=== PATIENT | male | born 1965 | race Caucasian/White ===

== ENCOUNTER 2018-07-28 07:43 | Observation (INO) ==
[2018-07-28] MEDS ORDERED: Bisacodyl 10 MG Supp RECTAL PRN (14:55)
[2018-07-28] MEDS ORDERED: Acetaminophen 325 MG Tablet PO PRN (14:55)
[2018-07-28] MEDS ORDERED: Warfarin Consult Pharmacy OTHER PRN (14:59)
--- NOTE | 2018-07-28 15:05 | P.HP ---
History of Present Illness Primary Care Physician: UNKNOWN Chief Complaint: Intractable dizziness with nausea vomiting History of Present Illness: 52-year-old male with known history of antiphospholipid syndrome, Isela fundoplication for hiatal hernia who presented to the hospital for evaluation of intractable dizziness with nausea, vomiting and disequilibrium. Patient states that he was in normal state of health until this morning when he woke up suddenly out of bed at approximately 7 AM with severe dizziness. He described it as the room was spinning around and round. When he got up to go to the restroom he states that the room was spinning around as well as tilting to the left. He was having difficulty in ambulating to the restroom. Patient indicates that the dizziness continued and was persistent causing him to have an episode of nausea and vomiting. The patient gave it some time to see if it would resolve on its own however it did not so he came to the emergency department for evaluation. The patient came to the emergency department and was given Antivert, Bentyl, aspirin, Zofran with significant improvement of his symptoms. Presently he states that he does have some nausea with some mild spinning whenever he tries to stand up. However he is not experiencing the tilting of his ambulation at this time. The patient did have workup with CT, CTA of the head and neck without any acute abnormality. The patient denies any visual disturbances, difficulty eating or swallowing food, slurred speech, unilateral weakness, paresthesia or paralysis. It was recommended by her physician of the patient be observed in the hospital for further evaluation and management. - Diagnosis (1) Dizziness (2) Nausea & vomiting (3) Disequilibrium Review of Systems All other systems reviewed negative except as stated in HPI Neurologic: Reports abnormal walking, Reports dizziness PMFSH - History History Provided By: Patient - Medical History Medical History: Medical History (Last Reviewed 07/28/18 @ 15:04 by DURGA Laughlin) Anti-phospholipid syndrome Hypoglycemia - Surgical History Surgical History: Surgical History (Last Updated 07/28/18 @ 15:05 by DURGA Laughlin) History of Isela fundoplication Status post carotid surgery - Family History Family History: Family History (Last Updated 07/28/18 @ 15:08 by DURGA Laughlin) Father Family history of coronary artery disease - Tobacco History Second Hand Smoke Exposure: No Tobacco Use In Past 30 Days: No Smoking Status: Former smoker Tobacco Type: Cigarettes Number of Pack Years (if former smoker): 35 (Patient quit in 2015) - Alcohol History How Often Do You Have a Drink Containing Alcohol: Never - Substance Use History Substance History: No History of Abuse - Travel History Recent Travel in the [place] Within the Last 8 Weeks: No Recent Travel Out of the Country Within the Last 8 Weeks: No Medications and Allergies Active Medications: Active Medications Acetaminophen (Tylenol) 650 mg PO Q4H PRN PRN Reason: Temp > 100.4 Al Hydroxide/Mg Hydroxide (Milk Of Magnesia Liq) 30 ml PO Q12H PRN PRN Reason: Mild Constipation Bisacodyl (Dulcolax Supp) 10 mg RECTAL DAILY PRN PRN Reason: SEVERE CONSITIPATION Sodium Chloride (Ns Inj) 1,000 mls @ 100 mls/hr IV.CONT .Q10H DIONY Lactulose (Lactulose Liq) 30 ml PO DAILY PRN PRN Reason: SEVERE CONSITIPATION Meclizine HCl (Antivert) 25 mg PO Q8H DIONY Ondansetron HCl (Zofran Inj) 4 mg IV.PUSH Q6H PRN PRN Reason: NAUSEA OR VOMITING Pharmacy Profile Note (Coumadin Consult Pharmacy) 1 each OTHER UNSCH PRN PRN Reason: PHARMACY DOCUMENTATION Senna/Docusate Sodium (Neyda-Colace) 1 tab PO BID DIONY Sennosides (Senokot) 17.2 mg PO Q12H PRN PRN Reason: Moderate Constipation Sodium Chloride (Ns Flush) 2 ml IV.FLUSH BID DIONY Sodium Chloride (Ns Flush) 2 ml IV.FLUSH PRN PRN PRN Reason: FLUSH AFTER USING IV ACCESS Allergies Allergy/AdvReac Type Severity Reaction Status Date / Time Penicillins Allergy Hives Verified 07/28/18 08:00 Home Medications Medication Instructions Recorded Confirmed Type gabapentin 300 mg PO BID 07/28/18 07/28/18 History warfarin [Coumadin] 8 mg PO DAILY 07/28/18 07/28/18 History Exam Vital signs: Vital Signs 07/28/18 12:03 07/28/18 12:06 Temperature 97.7 F 97.5 F L Pulse Rate 112 H 53 L Respiratory Rate 20 20 Blood Pressure 170/95 H 135/82 Pulse Oximetry 93 L 99 Intake & Output 07/27/18 07/28/18 07/28/18 18:59 06:59 18:59 Weight 99.7 kg Other: Date of Last Bowel Movement 07/27/18 Weight On Admission 99.7 kg Narrative: GENERAL: Well-developed, well-nourished, in no acute distress. alert and orientated HEENT: Head is normocephalic without any lesions or masses noted. Facial features are symmetric. Eyes: Pupils equal round reactive to light. Extraocular muscles are intact. Conjunctivae were clear. Oropharyngeal: Pharynx without any erythema edema. Tongue is midline without deviation. Buccal mucosa is moist without any masses or lesions NECK: Supple without any masses. Trachea midline no deviation. No JVD, no bruits are appreciated CARDIAC: Regular rhythm, regular rate. S1/S2 are heard. No murmurs gallops or rubs. LUNGS: Clear to auscultation bilaterally. No wheeze, rhonchi or rales. No use of accessory muscles on inspiration or expiration. ABDOMEN: Soft, nontender. Nondistended. Bowel sounds heard in all 4 quadrants. No organomegaly or masses. Negative rebound, negative guarding EXTREMITIES: No edema, pulses are equal bilaterally. No cyanosis or clubbing NEUROLOGY: Mood and affect appear appropriate. Cranial nerves II through XII grossly intact. Muscle strength 5/5 in upper and lower extremities bilaterally. Deep tendon reflexes are 2+ in upper and lower extremities bilaterally. Caprini VTE Risk Assessment Caprini VTE Risk Assessment: No/Low Risk (score <= 1) Caprini Risk Assessment Model: Point Value = 1 Point Value = 2 Point Value = 3 Point Value = 5 Age 41-60 Minor surgery BMI > 25 kg/m2 Swollen legs Varicose veins or History of unexplained or recurrent spontaneous Oral contraceptives or hormone replacement Sepsis (< 1 month) Serious lung disease, including pneumonia (< 1 month) Abnormal pulmonary function Acute myocardial infarction Congestive heart failure (< 1 month) History of inflammatory bowel disease Medical patient at bed rest Age 61-74 Arthroscopic surgery Major open surgery (> 45 min) Laparoscopic surgery (> 45 min) Malignancy Confined to bed (> 72 hours) Immobilizing plaster cast Central venous access Age >= 75 History of VTE Family history of VTE Factor V Leiden Prothrombin [id number] Lupus anticoagulant Anticardiolipin antibodies Elevated serum homocysteine Heparin-induced thrombocytopenia Other congenital or acquired thrombophilia Stroke (< 1 month) Elective arthroplasty Hip, pelvis, or leg fracture Acute spinal cord injury (< 1 month) Prophylaxis Regimen: Total Risk Factor Score Risk Level Prophylaxis Regimen 0-1 Low Early ambulation 2 Moderate Order ONE of the following: *Sequential Compression Device (SCD) *Heparin 5000 units SQ BID 3-4 Higher Order ONE of the following medications: *Heparin 5000 units SQ TID *Enoxaparin/Lovenox 40 mg SQ daily (WT < 150 kg, CrCl > 30 mL/min) *Enoxaparin/Lovenox 30 mg SQ daily (WT < 150 kg, CrCl > 10-29 mL/min) *Enoxaparin/Lovenox 30 mg SQ BID (WT < 150 kg, CrCl > 30 mL/min) AND/OR *Sequential Compression Device (SCD) 5 or more Highest Order ONE of the following medications: *Heparin 5000 units SQ TID (Preferred with Epidurals) *Enoxaparin/Lovenox 40 mg SQ daily (WT < 150 kg, CrCl > 30 mL/min) *Enoxaparin/Lovenox 30 mg SQ daily (WT < 150 kg, CrCl > 10-29 mL/min) *Enoxaparin/Lovenox 30 mg SQ BID (WT < 150 kg, CrCl > 30 mL/min) AND *Sequential Compression Device (SCD) Assessment and Plan - Assessment (1) Dizziness Code(s): R42 - Dizziness and giddiness Status: Acute (2) Nausea & vomiting Code(s): R11.2 - Nausea with vomiting, unspecified Status: Acute (3) Disequilibrium Code(s): R42 - Dizziness and giddiness Status: Acute - Plan Intractable dizziness with nausea, vomiting, disequilibrium -CT of the head was unremarkable for acute abnormality -CTA of the head and neck was unremarkable for any acute abnormality -Patient had improvement after use of meclizine, Zofran, aspirin -We will obtain MRI of the brain to rule out any CVA -Continue meclizine 25 mg every 8 hours -Obtain physical therapy evaluation Antiphospholipid syndrome -Patient continued on anticoagulation with Coumadin DVT prevention -Patient is on Coumadin with INR 2.9 -Sequential compression devices
[2018-07-28] MEDS: Sod Chloride 0.9% Inj 1,000 ML IV.CONT SCH (15:16)
--- NOTE | 2018-07-28 16:46 | MR ---
EXAM DATE: 07/28/2018 4:40 PM EST AGE/SEX: 52 years / Male INDICATIONS: Dizziness. CLINICAL DATA: This is the patient's subsequent encounter. Patient reports that signs and symptoms h ave been present for 2 days and indicates a pain score of 2/10. MEDICAL/SURGICAL HISTORY: None. Carotid endarterectomy. COMPARISON: [facility], CT HEAD W/O CONTRAST, 07/28/2018. [facility], CTA HEAD W CONTRAST W 3D, 07/28/2018 . . TECHNIQUE: Multiplanar, multisequence examination of the brain was performed without contrast. FINDINGS: Cerebrum: The ventricles are normal for age. No evidence of midline shift, mass lesion, hemorrhage or acute infarction. No extraaxial fluid collections are seen. The pituitary gland and suprasellar cistern are normal in configuration. White Matter: No significant signal abnormalities are seen in the white matter. Posterior Fossa: The cerebellum and brainstem are intact. The 4th ventricle is midline. The cerebel lopontine angle is unremarkable. The cerebellar tonsils are normal in position. Diffusion Imaging: No focal areas of restricted diffusion are seen. No evidence of acute infarction . Extracranial: The visualized portions of the orbits and paranasal sinuses are unremarkable. CONCLUSION: 1. Negative MR Brain non contrast. Electronically signed by: Dario Reinoso MD Board Certified Radiologist 07/28/2018 4:45 PM EST
[2018-07-28] MEDS: Gabapentin 300 MG Capsule PO SCH (20:39)
[2018-07-28] MEDS: Senna/Docusate Sodium 8.6/50 MG Tablet PO SCH (20:39)
[2018-07-29] MEDS: Sod Chloride 0.9% Inj 1,000 ML IV.CONT SCH (01:06)
[2018-07-29 06:32] LABS: INR 2.6 Ratio; Prothrombin Time 26.1 sec (9.8-11.6)
--- NOTE | 2018-07-29 07:47 | P.DCO ---
- Diagnosis (1) Dizziness Status: Acute (2) Disequilibrium Status: Acute - Physical Therapy Order: Evaluate and treat Instructions: Vestibular therapy - Case Management Consult Case Management Consult-Home Health: Yes - Certification I have seen patient Sergio Mccabe on 07/29/18. My clinical findings support the need for the requested home health care services because: High risk of falls I certify that my clinical findings support that this patient is homebound because: Unsteady gait/balance, Unsafe to leave home unassisted
--- NOTE | 2018-07-29 07:50 | P.PNIM ---
Subjective Interval history: 52-year-old male who is seen examined today for follow-up on dizziness , disequilibrium. Patient is doing much better after the initiation of meclizine. Patient ambulation has improved but he still is experiencing some mild vertigo. Vital signs are stable. Patient remains afebrile. Physical Exam Vital signs: Vital Signs 07/28/18 12:03 07/28/18 12:06 07/28/18 16:00 Temperature 97.7 F 97.5 F L 97.5 F L Pulse Rate 112 H 53 L 68 Respiratory Rate 20 20 20 Blood Pressure 170/95 H 135/82 111/64 Pulse Oximetry 93 L 99 97 07/28/18 20:00 07/29/18 00:00 07/29/18 04:00 Temperature 98.1 F 96.6 F L 96.7 F L Pulse Rate 60 58 L 57 L Respiratory Rate 20 20 18 Blood Pressure 119/68 108/71 103/57 L Pulse Oximetry 96 98 98 Intake & Output 07/28/18 07/29/18 07/29/18 18:59 06:59 18:59 Intake Total 60 / 60 1480 / 1480 Balance 60 / 60 1480 / 1480 Weight 99.7 kg 100.5 kg Intake: IV 1000 / 1000 NS Inj 1,000 ML @ 100 mls/hr IV 1000 / 1000 .CONT .Q10H DIONY Rx#:[id number] Oral 60 / 60 480 / 480 Other: # Voids 2 3 Date of Last Bowel Movement 07/27/18 07/27/18 Weight On Admission 99.7 kg Narrative: GENERAL: Well-developed, well-nourished, in no acute distress. alert and orientated HEENT: Head is normocephalic without any lesions or masses noted. Facial features are symmetric. Eyes: Extraocular muscles are intact. Conjunctivae were clear. NECK: Supple without any masses. Trachea midline no deviation. No JVD, CARDIAC: Regular rhythm, regular rate. S1/S2 are heard. No murmurs gallops or rubs. LUNGS: Clear to auscultation bilaterally. No wheeze, rhonchi or rales. No use of accessory muscles on inspiration or expiration. ABDOMEN: Soft, nontender. Nondistended. Bowel sounds heard in all 4 quadrants. No organomegaly or masses. Negative rebound, negative guarding EXTREMITIES: No edema, pulses are equal bilaterally. No cyanosis or clubbing NEUROLOGY: Mood and affect appear appropriate. Cranial nerves II through XII grossly intact. Moving all extremities, speech is clear Results - Labs Laboratory Results - last 24 hr 07/29/18 05:15 PT 26.1 H INR 2.6 - Imaging Impressions Head MRI 07/28/18 14:58 CONCLUSION: 1. Negative MR Brain non contrast. Assessment and Plan - Assessment (1) Dizziness Code(s): R42 - Dizziness and giddiness Status: Acute (2) Disequilibrium Code(s): R42 - Dizziness and giddiness Status: Acute (3) Nausea & vomiting Code(s): R11.2 - Nausea with vomiting, unspecified Status: Acute - Plan Intractable dizziness with nausea, vomiting, disequilibrium -CT of the head was unremarkable for acute abnormality -CTA of the head and neck was unremarkable for any acute abnormality -Patient had improvement after use of meclizine, Zofran, aspirin -MRI was performed which did not indicate any acute abnormality -Continue meclizine 25 mg every 8 hours -Physical therapy evaluated patient and indicated patient has vertigo and would benefit from home health care physical therapy Antiphospholipid syndrome -Patient continued on anticoagulation with Coumadin DVT prevention -Patient is on Coumadin with INR 2.9 -Sequential compression devices Discharge Planning: Discharge home in stable condition Activity: Ad brenna. Diet: Regular diet Medication per medication reconciliation Follow-up with primary medical doctor in 1 week
[2018-07-29] MEDS: Senna/Docusate Sodium 8.6/50 MG Tablet PO SCH (08:10)
[2018-07-29] MEDS: Gabapentin 300 MG Capsule PO SCH (08:11)
[2018-07-29 10:00] VITALS: BP 119/81; PULSE 67; RESP 20; TEMP 97.4; O2SAT 97
== END 2018-07-29 10:47 | disposition home or self-care (01) ==
LOC: PH3 07:43 → PHEDDLT 07:43
PROVIDERS: ADMIT Hospitalist; ATTEND Hospitalist